=== PATIENT | female | born 1945 | race Caucasian/White ===

== ENCOUNTER → 2016-12-06 | Outpatient (CLI) | payer MEDICARE, OTHER ==
--- NOTE | 2016-12-06 10:25 | US ---
EXAMINATION TYPE: US abdomen complete DATE OF EXAM: 12/06/2016 8:31 AM COMPARISON: NONE CLINICAL HISTORY: 71-year-old female R10.11 RUQ Pain. TECHNIQUE: Multiple sonographic images of the abdomen were obtained. FINDINGS: EXAM MEASUREMENTS: Liver Length: 13.3 cm Gallbladder Wall: 0.2 cm CBD: 0.5 cm Spleen: 8.6 cm Right Kidney: 13.2 x 3.8 x 4.6 cm Left Kidney: 13.1 x 5.3 x 4.0 cm TECHNOLOGIST IMPRESSION: Pancreas: Suboptimal visualization of the pancreatic tail secondary to shadowing from bowel gas. Vis ualized portions show no gross abnormality. Liver: Normal size with a homogeneous echotexture. No focal lesion seen. Gallbladder: No abnormal gallbladder distention, wall thickening, pericholecystic fluid, or shadowin g calculi. Evidence for sonographic Gilmore's sign: No CBD: Within normal limits. Spleen: Within normal limits. Right Kidney: Slightly prominent in size without hydronephrosis. Left Kidney: Slightly prominent in size without hydronephrosis. Upper IVC: Within normal limits. Abd Aorta: Moderate atherosclerotic calcifications and irregularity is noted throughout. IMPRESSION: 1. Moderate atherosclerotic calcifications throughout the abdominal aorta and suboptimal visualizatio n of the pancreatic tail. The kidneys are also slightly prominent in size but this may be normal for the patient. 2. Otherwise, unremarkable sonographic examination of the abdomen.
== END | disposition home or self-care (01) ==
LOC: RADUSWWP 08:07
PROVIDERS: ATTEND Family Medicine
DX: I70.0 Atherosclerosis of aorta (principal); R10.11 Right upper quadrant pain
CPT/HCPCS: 76700

== ENCOUNTER → 2018-04-26 | Outpatient (CLI) | payer MEDICARE, OTHER ==
--- NOTE | 2018-04-27 10:26 | MR ---
EXAMINATION TYPE: MR lumbar spine wo con DATE OF EXAM: 04/26/2018 COMPARISON: 06/01/2012 HISTORY: 73-year-old female Intervertebral disc disorders, lumbar TECHNIQUE: Multiplanar, multisequence images of the lumbar spine were acquired. Findings: Vertebral body heights are preserved. Unchanged trace grade 1 anterolisthesis at L5/S1. Otherwise, alignment is maintained though with stra ightening of the normal lumbar lordosis. Conus medullaris is normal. No prevertebral paravertebral soft tissue abnormality seen. No suspicious bone marrow replacement. There is mixed Modic type II and Modic type III endplate stern e at both L3-L4 and L4-L5 relating to severe degenerative disc disease. There is complete to near complete disc interspace narrowing with endplate irregularity and disc oste ophyte complex formation at these levels. Variable mild disc desiccation at the other levels and bulging disc at L5-S1. Severe hypertrophic facet arthropathy mid to lower lumbar spine. At T12-L1, no canal or foraminal stenosis. At L1-L2, ligamentum flavum thickening and facet degenerative change without significant canal or for aminal stenosis. At L2-L3, there is facet degenerative change and anterior endplate spondylosis with mild ligamentum f lavum thickening. No significant canal or foraminal stenosis. At L3-L4, disc osteophyte complex with facet arthropathy. Changes result in mild left and minimal inf erior right neural foraminal narrowing without spinal canal stenosis. Not significantly changed. At L4-L5, there is disc osteophyte complex with severe hypertrophic facet arthropathy and ligamentum flavum thickening. Similar moderate right and mild inferior left neural foraminal stenosis without sp inal canal stenosis. At L5-S1, there is hypertrophic facet arthropathy with grade 1 anterolisthesis, ligamentum flavum thi ckening, and mild bulging disc. Changes result in similar mild left neuroforaminal stenosis. No spina l canal stenosis. 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 IMPRESSION: 1. Severe disc/endplate degenerative change redemonstrated at L3-L4 and L4-L5. Associated mixed Modic type II and type III endplate change at these levels. 2. Advanced hypertrophic facet arthropathy mid to lower lumbar spine with similar trace grade 1 anter olisthesis at L5-S1. 3. There is no canal compromise. 4. At L4-L5, there is similar moderate right neural foraminal stenosis and at L5-S1, similar mild lef t foraminal stenosis.
== END | disposition home or self-care (01) ==
LOC: RADMRIMAIN 12:56
PROVIDERS: ATTEND Family Medicine
DX: M99.73 Connective tissue and disc stenosis of intervertebral foramina of lumbar region (principal); M47.26 Other spondylosis with radiculopathy, lumbar region; M46.96 Unspecified inflammatory spondylopathy, lumbar region
CPT/HCPCS: 72148